=== PATIENT | female | born 1960 | race Caucasian/White ===

== ENCOUNTER → 2017-03-29 | Outpatient (CLI) | payer BC ==
--- NOTE | 2017-03-30 08:52 | MM ---
Reason for exam: screening (asymptomatic). Last mammogram was performed 1 year and 1 month ago. History: Patient is postmenopausal and history of other cancer. Family history of breast cancer in maternal grandmother and breast cancer in paternal aunt. Took hormonal contraceptives for 14 years beginning at age 18. Physical Findings: A clinical breast exam by your physician is recommended on an annual basis and results should be correlated with mammographic findings. MG 3D Screening Mammo W/Cad Bilateral CC and MLO view(s) were taken. Prior study comparison: March 01, 2016, bilateral MG 3d screening mammo w/cad. September 11, 2014, bilateral MG screening mammo w CAD. September 12, 2013, right breast MG work up mamm w CAD RT. There are scattered fibroglandular densities. There is chronic nodularity in the right breats. There is no discrete abnormality. ASSESSMENT: Negative, BI-RAD 1 RECOMMENDATION: Routine screening mammogram of both breasts in 1 year.
== END | disposition home or self-care (01) ==
LOC: RADMAMWWP 09:47
PROVIDERS: ATTEND Family Medicine
DX: Z12.31 Encounter for screening mammogram for malignant neoplasm of breast (principal)
CPT/HCPCS: 77063; 77067

== ENCOUNTER → 2018-04-10 | Outpatient (CLI) | payer BC ==
--- NOTE | 2018-04-10 10:58 | BD ---
EXAMINATION TYPE: Axial Bone Density DATE OF EXAM: 04/10/2018 COMPARISON: 03/01/2016 CLINICAL HISTORY: Postmenopausal female. Osteoporosis screening. Height: 62 IN Weight: 186 LBS RISK FACTORS HISTORY OF: Active: YES Diet low in dairy products/other sources of calcium: YES Postmenopausal woman: AGE 43 Take estrogen and/or progesterone medications: NOT NOW How long: TOOK CONTROL AGE [age] MEDICATIONS: Thyroid Medications: YES Which medication: Synthroid How Lon YEARS + OSTEOPOROSIS MEDS: NOT NOW ACTONEL FOR 5 YEARS Additional Medications: CALCIUM, VIT D, SYNTHROID, BLOOD PRESSURE MEDS, CHOLESTEROL MEDS EXAM MEASUREMENTS: Bone mineral densitometry was performed using the [employer] System. Bone mineral density as measured about the Lumbar spine is: ----- L1-L4(G/cm2): 1.007 T Score Values are as follows: ----- L2: -1.7 ----- L3: -1.3 ----- L4: -0.8 ----- L1-L4: -1.4 Bone mineral density has: Increased 3.3% since study of: 03/01/2016 Bone mineral density about the R hip (g/cm2): 1.051 Bone mineral density about the L hip (g/cm2): 1.015 T Score values are as follows: -----R Neck: 0.1 -----L Neck: -0.2 -----R Total: 0.8 -----L Total: 0.6 Bone mineral density has: Decreased -1.5% since study of: 03/01/2016 IMPRESSION: Osteopenia (T Score between -2.5 and -1) with regards to the lumbar spine. There is slightly increased risk of fracture and the patient may be considered for treatment. Re-Screen 2-5 years. NOTE: T-SCORE=SD OF THE YOUNG ADULT MEAN.
--- NOTE | 2018-04-13 16:47 | MM ---
Reason for exam: screening (asymptomatic). Last mammogram was performed 1 year ago. History: Patient is postmenopausal and history of other cancer. Family history of breast cancer in maternal grandmother and breast cancer in paternal aunt. Took hormonal contraceptives for 14 years beginning at age 18. MG 3D Screening Mammo W/Cad Bilateral CC and MLO view(s) were taken. Prior study comparison: March 29, 2017, bilateral MG 3d screening mammo w/cad. March 01, 2016, bilateral MG 3d screening mammo w/cad. The breast tissue is heterogeneously dense. This may lower the sensitivity of mammography. there is a 1 mm round lobulated margin density in the right slight middle position. This finding is changed when compared to 2016 and earlier. ASSESSMENT: Incomplete: need additional imaging evaluation, BI-RAD 0 RECOMMENDATION: Ultrasound of the right breast.
== END ==
LOC: RADMAMWWP 06:57
PROVIDERS: ATTEND Family Medicine
DX: Z12.31 Encounter for screening mammogram for malignant neoplasm of breast (principal); M85.88 Other specified disorders of bone density and structure, other site; Z78.0 Asymptomatic menopausal state
CPT/HCPCS: 77063; 77067; 77080

== ENCOUNTER → 2018-04-24 | Outpatient (CLI) | payer BC ==
--- NOTE | 2018-04-25 09:16 | USB ---
Reason for exam: additional evaluation requested from abnormal screening. History: Patient is postmenopausal and history of other cancer. Family history of breast cancer in maternal grandmother and breast cancer in paternal aunt. Took hormonal contraceptives for 14 years beginning at age 18. Physical Findings: Nurse did not find any significant physical abnormalities on exam. US Breast Workup Limited RT Right limited breast ultrasound including focal area of concern, retroareolar and axilla demonstrates no cystic or solid lesion seen. These results were verbally communicated with the patient and result sheet given to the patient on 04/24/18. ASSESSMENT: Suspicious, BI-RAD 4 RECOMMENDATION: Stereotactic core biopsy of the right breast. Called Dr. Leisa Morales with mammographic findings and has scheduled an appointment for the patient for 05/24/18 at 3:[address] Morales. Biopsy scheduled for 05/04/18 at 10:20. PRELIMINARY REPORT CALLED AND FAXED TO DR. MORALES ON 04/25/18.
== END | disposition home or self-care (01) ==
LOC: RADUSWWP 10:27
PROVIDERS: ATTEND Family Medicine
DX: R92.8 Other abnormal and inconclusive findings on diagnostic imaging of breast (principal)

== ENCOUNTER → 2018-05-04 | Day surgery (SDC) | payer BC ==
[2018-05-04 09:29] VITALS: RESP 16; TEMP 98.1; BMI 32.9
[2018-05-04 11:46] VITALS: BP 117/79; PULSE 62
--- NOTE | 2018-05-04 14:34 | MM ---
Stereotactic Mammotome core biopsy right breast. HISTORY: Nodule right breast The nodule in question within the right breast were targeted by the undersigned. Procedure was perfo rmed by the undersigned. Informed consent was obtained and all of the patients questions were answere d. The standard sterile technique was utilized and appropriate local anesthesia was obtained with 1% lidocaine and bicarbonate as well as a 1% lidocaine with epinephrine. Mammotome probe was advanced and multiple core samples were obtained and sent to pathology for interpretation. Microclip marker w as deployed at the site of biopsy. Post procedural mammogram demonstrates appropriate deployment of radiopaque clip marker. The patient tolerated the procedure well and left the department in stable c ondition. Pathology results are pending. IMPRESSION: Successful stereotactic core biopsy right breast with pathology results pending.
== END | disposition home or self-care (01) ==
LOC: RADMAMWWP 09:13
PROVIDERS: ATTEND Surgery
DX: N63.0 Unspecified lump in unspecified breast (principal)
CPT/HCPCS: 88305; 19081; A4648; J2001

== ENCOUNTER → 2019-04-19 | Outpatient (CLI) | payer BC ==
--- NOTE | 2019-04-19 11:13 | MM ---
Reason for exam: additional evaluation requested from prior study. Last mammogram was performed 1 year ago. History: Patient is postmenopausal and history of other cancer. Family history of breast cancer in maternal grandmother and breast cancer in paternal aunt. Benign MG stereo VAD BX RT of the right breast, May 04, 2018. Took hormonal contraceptives for 14 years beginning at age 18. Physical Findings: Nurse did not find any significant physical abnormalities on exam. MG 3D Diag Mammo W/Cad SADI Bilateral CC and MLO view(s) were taken. Prior study comparison: April 10, 2018, bilateral MG 3d screening mammo w/cad. March 29, 2017, bilateral MG 3d screening mammo w/cad. There are scattered fibroglandular densities. No significant new findings when compared with previous films. These results were verbally communicated with the patient and result sheet given to the patient on 04/19/19. ASSESSMENT: Benign, BI-RAD 2 RECOMMENDATION: Routine screening mammogram of both breasts in 1 year.
== END | disposition home or self-care (01) ==
LOC: RADMAMWWP 08:11
PROVIDERS: ATTEND Family Medicine
DX: R92.8 Other abnormal and inconclusive findings on diagnostic imaging of breast (principal)
CPT/HCPCS: 77062; 77066

== ENCOUNTER 2020-10-07 11:35 | Emergency (ER) | payer BC ==
[2020-10-07] MEDS ORDERED: MORPHINE SULFATE 4 MG/ML SYRINGE IVP STA (11:53)
[2020-10-07] MEDS ORDERED: SODIUM CHLORIDE 0.9% 1,000 ML IV STA (11:53)
[2020-10-07] MEDS ORDERED: ONDANSETRON 4 MG/2 ML VIAL IVP STA (11:53)
--- NOTE | 2020-10-07 12:06 | ED ---
General Adult HPI - General Chief complaint: Back Pain/Injury Stated complaint: back pain Time Seen by Provider: 10/07/20 11:39 Source: patient, RN notes reviewed Mode of arrival: ambulatory Limitations: no limitations - History of Present Illness Initial comments: 60-year-old female presents to the emergency room for a chief complaint of right low back pain. Patient reports she has a new puppy. She reports that yesterday she bent down to greens picker the puppy. When she stood back up she felt a severe pain in the right low back. Patient states this caused her to vomit all night long. States she could not get comfortable throughout the night. Patient denies any bladder bowel changes, saddle anesthesia, weakness of the legs. Patient does report that movement makes the pain worse such as going from a laying to a sitting position. Walking also makes the pain worse. Patient denies any fevers.Patient has no other complaints at this time including shortness of breath, chest pain, abdominal pain, nausea or vomiting, headache, or visual changes. - Related Data Home Medications Medication Instructions Recorded Confirmed Atorvastatin [Lipitor] 40 mg PO HS 04/25/18 05/04/18 Benazepril/Hydrochlorothiazide 1 each PO DAILY 04/25/18 05/04/18 [Benazepril-Hctz 10-12.5 mg Tab] Levothyroxine Sodium [Synthroid] 75 mcg PO DAILY 04/25/18 05/04/18 Previous Rx's Medication Instructions Recorded Cyclobenzaprine [Flexeril] 10 mg PO TID #14 tab 10/07/20 Ibuprofen [Motrin] 600 mg PO Q8HR PRN #20 tab 10/07/20 Ondansetron [Zofran ODT] 4 mg PO Q8HR PRN #15 tab 10/07/20 Allergies Allergy/AdvReac Type Severity Reaction Status Date / Time No Known Allergies Allergy Verified 10/07/20 11:36 Review of Systems ROS Statement: Those systems with pertinent positive or pertinent negative responses have been documented in the HPI. ROS Other: All systems not noted in ROS Statement are negative. Past Medical History Past Medical History: Hypertension, Thyroid Disorder Additional Past Medical History / Comment(s): hypothyroidism (takes 75mcg of synthroid) History of Any Multi-Drug Resistant Organisms: None Reported Past Surgical History: Appendectomy, Hysterectomy Additional Past Surgical History / Comment(s): ecoptic x1 (1985), Total hysterectomy 2004, breast reduction 2019 Past Anesthesia/Blood Transfusion Reactions: No Reported Reaction Additional Past Anesthesia/Blood Transfusion Reaction / Comment(s): No blood transfusion to date Past Psychological History: No Psychological Hx Reported Smoking Status: Never smoker Past Alcohol Use History: Rare Past Drug Use History: None Reported General Exam Limitations: no limitations General appearance: alert, in no apparent distress Head exam: Present: atraumatic, normocephalic, normal inspection Eye exam: Present: normal appearance, PERRL, EOMI. Absent: scleral icterus, conjunctival injection, periorbital swelling ENT exam: Present: normal exam, mucous membranes moist Neck exam: Present: normal inspection, full ROM. Absent: tenderness, menin gismus, lymphadenopathy Respiratory exam: Present: normal lung sounds bilaterally. Absent: respiratory distress, wheezes, rales, rhonchi, stridor Cardiovascular Exam: Present: regular rate, normal rhythm, normal heart sounds. Absent: systolic murmur, diastolic murmur, rubs, gallop, clicks GI/Abdominal exam: Present: soft, normal bowel sounds. Absent: distended, tenderness, guarding, rebound, rigid Extremities exam: Present: normal capillary refill (Capillary refill less than 2 seconds, DP pulses 2+ in lower extremities bilaterally) Back exam: Present: paraspinal tenderness (Right-sided lumbar paraspinal tenderness near her SI joint.). Absent: CVA tenderness (R), CVA tenderness (L), vertebral tenderness Course Vital Signs 10/07/20 10/07/20 10/07/20 11:36 12:04 13:50 Temperature 98.4 F Pulse Rate 76 75 69 Respiratory 16 18 18 Rate Blood Pressure 148/82 127/77 121/70 O2 Sat by Pulse 97 95 98 Oximetry Medical Decision Making - Medical Decision Making vitals are stable. Patient is well-appearing. Presents for right-sided low back pain. Pain does seem musculoskeletal in nature. Pain is elicited with movement and patient did have an injury. However patient states this pain is severe and has been vomiting all night and therefore workup was initiated to rule out any other emergent pathologies. CBC was obtained which was unrema rkable. CMP shows mild dehydration, patient was given fluids. Urinalysis is unremarkable. CT abdomen and pelvis shows degenerative disc disease with posterior disc bulges noted at L5-S1 as well as L4-L5 and L3-L4. Hiatal hernia noted as well as diverticulosis. Suspect patient's symptoms are likely related to disc bulge. Patient was given pain medication and had significant improvement in pain. She does not have any red flag symptoms, denies bladder or bowel changes, saddle anesthesia, weakness of the legs, or fevers. At this time patient can be discharged home to follow up with orthopedics. We will send her home with pain medication. She will return here for any worsening symptoms that are discussed with her. - Lab Data Result diagrams: 10/07/20 12:21 10/07/20 12:21 Lab Results 10/07/20 10/07/20 10/07/20 Range/Units 12:21 12:21 12:21 WBC 9.2 (3.8-10.6) k/uL RBC 4.94 (3.80-5.40) m/uL Hgb 15.1 (11.4-16.0) gm/dL Hct 43.4 (34.0-46.0) % MCV 87.9 (80.0-100.0) fL MCH 30.5 (25.0-35.0) pg MCHC 34.7 (31.0-37.0) g/dL RDW 12.6 (11.5-15.5) % Plt Count 336 (150-450) k/uL MPV 7.1 Neutrophils % 85 % Lymphocytes % 9 % Monocytes % 4 % Eosinophils % 1 % Basophils % 0 % Neutrophils # 7.8 H (1.3-7.7) k/uL Lymphocytes # 0.8 L (1.0-4.8) k/uL Monocytes # 0.4 (0-1.0) k/uL Eosinophils # 0.1 (0-0.7) k/uL Basophils # 0.0 (0-0.2) k/uL Sodium 139 (137-145) mmol/L Potassium 3.9 (3.5-5.1) mmol/L Chloride 103 (98-107) mmol/L Carbon Dioxide 26 (22-30) mmol/L Anion Gap 10 mmol/L BUN 19 H (7-17) mg/dL Creatinine 0.64 (0.52-1.04) mg/dL Est GFR (CKD-EPI)AfAm >90 (>60 ml/min/1.73 sqM) Est GFR (CKD-EPI)NonAf >90 (>60 ml/min/1.73 sqM) Glucose 143 H (74-99) mg/dL Calcium 9.5 (8.4-10.2) mg/dL Total Bilirubin 0.3 (0.2-1.3) mg/dL AST 24 (14-36) U/L ALT 18 (4-34) U/L Alkaline Phosphatase 103 (38-126) U/L Total Protein 7.1 (6.3-8.2) g/dL Albumin 4.7 (3.5-5.0) g/dL Amylase 47 (30-110) U/L Lipase 99 (23-300) U/L Urine Color Yellow Urine Appearance Clear (Clear) Urine pH 6.0 (5.0-8.0) Ur Specific [place] 1.028 (1.001-1.035) Urine Protein Trace H (Negative) Urine Glucose (UA) Negative (Negative) Urine Ketones Negative (Negative) Urine Blood Negative (Negative) Urine Nitrite Negative (Negative) Urine Bilirubin Negative (Negative) Urine Urobilinogen <2.0 (<2.0) mg/dL Ur Leukocyte Esterase Negative (Negative) Disposition Clinical Impression: Bulging discs, Back pain Disposition: HOME SELF-CARE Condition: Good Instructions (If sedation given, give patient instructions): Acute Low Back Pain (ED) Additional Instructions: Please follow-up with your doctor in orthopedics in one to 2 days. In the meantime take Motrin for pain. If pain is severe take Tylenol [address] or operate machinery while taking this. You may also take muscle relaxer while not driving. If you have any worsening symptoms such as bladder or bowel changes, saddle anesthesia, weakness of the legs, or fevers return immediately t o the emergency room. Prescriptions: Cyclobenzaprine [Flexeril] 10 mg PO TID #14 tab Ibuprofen [Motrin] 600 mg PO Q8HR PRN #20 tab PRN Reason: Pain Ondansetron [Zofran ODT] 4 mg PO Q8HR PRN #15 tab PRN Reason: Nausea Is patient prescribed a controlled substance at d/c from ED?: No Referrals: Leisa Morales MD [Primary Care Provider] - 1-2 days Balta Gallagher MD [STAFF PHYSICIAN] - 1-2 days Time of Disposition: 14:13
[2020-10-07 12:13] VITALS: RESP 18
[2020-10-07 12:37] LABS: Basophils % (A) 0 %; Eosinophils # (A) 0.1 k/uL (0-0.7); Eosinophils % (A) 1 %; HCT 43.4 % (34.0-46.0); HGB 15.1 gm/dL (11.4-16.0); Lymphocytes # (A) 0.8 k/uL (1.0-4.8); Lymphocytes % (A) 9 %; MCH 30.5 pg (25.0-35.0); MCHC 34.7 g/dL (31.0-37.0); MCV 87.9 fL (80.0-100.0); Mean Platelet Volume 7.1; Monocytes # (A) 0.4 k/uL (0-1.0); Monocytes % (A) 4 %; Neutrophils # (A) 7.8 k/uL (1.3-7.7); Neutrophils % (A) 85 %; Platelet Count 336 k/uL (150-450); RBC 4.94 m/uL (3.80-5.40); RDW 12.6 % (11.5-15.5); WBC 9.2 k/uL (3.8-10.6)
[2020-10-07 12:38] LABS: Appearance,Urine Clear (Clear); Bilirubin,Urine Negative (Negative); Blood,Urine Negative (Negative); Color,Urine Yellow; Glucose,Urine (UA) Negative (Negative); Ketones,Urine Negative (Negative); Leukocyte Esterase,Urine Negative (Negative); Nitrite,Urine Negative (Negative); Protein,Urine Trace (Negative); Specific Gravity,Urine 1.028 (1.001-1.035); Urobilinogen,Urine <2.0 mg/dL (<2.0)
[2020-10-07 13:00] LABS: ALT 18 U/L (4-34); AST 24 U/L (14-36); African American GFR (CKD) >90 (>60 ml/min/1.73 sqM); Albumin 4.7 g/dL (3.5-5.0); Alkaline Phosphatase 103 U/L (38-126); Amylase 47 U/L (30-110); Anion Gap 10 mmol/L; Blood Urea Nitrogen 19 mg/dL (7-17); Calcium 9.5 mg/dL (8.4-10.2); Carbon Dioxide 26 mmol/L (22-30); Chloride 103 mmol/L (98-107); Glucose 143 mg/dL (74-99); Lipase 99 U/L (23-300); Non-African American GFR(CKD) >90 (>60 ml/min/1.73 sqM); Potassium 3.9 mmol/L (3.5-5.1); Sodium 139 mmol/L (137-145); Total Bilirubin 0.3 mg/dL (0.2-1.3); Total Protein 7.1 g/dL (6.3-8.2)
--- NOTE | 2020-10-07 13:21 | CT ---
EXAMINATION TYPE: CT abdomen pelvis w con DATE OF EXAM: 10/07/2020 COMPARISON: None HISTORY: patient complains of "low back pain post lifting injury with radiation bilaterally to the le gs" CT DLP: 959.7 mGycm Automated exposure control for dose reduction was used. TECHNIQUE: Helical acquisition of images from the lung bases through the pelvis have been completed. CONTRAST: Performed without Oral Contrast and with IV Contrast, patient injected with 100 mL of Isovue 300. FINDINGS: There is a hiatal hernia. LUNG BASES: No significant abnormality is appreciated. AORTA: No significant abnormality is appreciated. LIVER/GB: No significant abnormality is appreciated. PANCREAS: No significant abnormality is seen. SPLEEN: No significant abnormality is seen. ADRENALS: No significant abnormality is seen. KIDNEYS: Cortical cyst associated with the right kidney, larger measures 3.2 cm REPRODUCTIVE ORGANS: Uterus is not seen ovary is not seen definitively seen BOWEL: Diverticular changes are associated with the sigmoid colon, no evident appendicitis FREE AIR: No Free Air visible. ASCITES: None visible. PELVIC ADENOPATHY: None visualized. RETROPERITONEAL ADENOPATHY: No Retroperitoneal Adenopathy visible. URINARY BLADDER: No significant abnormality is seen. OSSEOUS STRUCTURES: Posterior disc bulges noted at L5-S1, there may be contact of the proximal S1 ne rve roots, posterior broad-based disc bulge also present L4-5 and L3-4, there is associated facet art hropathy. IMPRESSION: DEGENERATIVE DISC DISEASE. DIVERTICULOSIS. HIATAL HERNIA.
[2020-10-07] MEDS ORDERED: KETOROLAC 15 MG/ML 1 ML VIAL IVP STA (14:14)
[2020-10-07] MEDS ORDERED: ACET/COD 300 MG/30 MG STARTER PACK 6 TAB BTL PO STA (14:14)
[2020-10-07 14:25] VITALS: BP 138/75; PULSE 70; TEMP 99.1
== END 2020-10-07 14:32 | disposition home or self-care (01) ==
LOC: EC 11:35
DX: M51.26 Other intervertebral disc displacement, lumbar region (principal); I10 Essential (primary) hypertension; E03.9 Hypothyroidism, unspecified; Z79.1 Long term (current) use of non-steroidal anti-inflammatories (NSAID); Z79.890 Hormone replacement therapy; Z79.899 Other long term (current) drug therapy
CPT/HCPCS: 36415; 80053; 82150; 83690; 85025; 81003; 74177; 96374; 96375 ×2; 96361 ×2; 99284; J2270; J2405; J1885; Q9967

== ENCOUNTER → 2021-06-16 | Outpatient (CLI) | payer BC ==
--- NOTE | 2021-06-16 20:32 | BD ---
EXAMINATION TYPE: Axial Bone Density DATE OF EXAM: 06/16/2021 COMPARISON: Prior DEXA bone scan April 10, 2018 CLINICAL HISTORY: 61 years year old Female. ICD-10 CODE: Z78.0 ASYMPTOMATIC MENOPAUSAL STATE Height: 5 FT 1 1/ 4IN Weight: 164 FRAX RISK QUESTIONS: Alcohol (3 or more units per day): NO Family History (Parent hip fracture): NO Glucocorticoids (More than 3mos): NO (Ex: prednisone, prednisolone, methylprednisolone, dexamethasone, and hydrocortisone). History of Fracture in Adulthood: NO Secondary Osteoporosis: 1. Type 1 Diabetes: NO 2. Hyperthyroidism: NO 3. Menopause before 45: YES 4. Malnutrition: NO 5. Chronic liver disease: NO Rheumatoid Arthritis: NO Current Tobacco Use: NO RISK FACTORS HISTORY OF: Surgery to Spine/Hip(right/left)/Wrist (right/left): NO Family History of Osteoporosis: NO Active: YES Diet low in dairy products/other sources of calcium: NO Postmenopausal woman: YES Take estrogen and/or progesterone medications: NO Lost more than 2 inches in height since high school: NO Frequent falls: NO Poor Health: GOOD Hyperparathyroidism: NO Adrenal Insufficiency: NO MEDICATIONS: Thyroid Medications: YES Which medication: LEVOTHYROXINE How Long: APPROX 8 YEARS Additional Medications: LEVOTHYROXINE, BENZO BENAZEPRIL, [place]VASTATAN Additional History: EXAM MEASUREMENTS: Bone mineral densitometry was performed using the [employer] System. Bone mineral density as measured about the Lumbar spine is: ----- L1-L4(G/cm2): 1.039 T Score Values are as follows: ----- L1: -1.5 ----- L2: -1.7 ----- L3: -1.1 ----- L4: -0.7 ----- L1-L4: -1.2 Bone mineral density has: INCREASED 1.0 % since study of: 2018 Bone mineral density about the R hip (g/cm2): 1.049 Bone mineral density about the L hip (g/cm2): 0.995 T Score values are as follows: -----R Neck: 0.1 -----L Neck: -0.3 -----R Total: 0.5 -----L Total: 0.2 Bone mineral density has: DECREASED -3.9 % since study of: 2019 FRAX%s: The graph provided illustrates a 6.6 % chance for a major osteoporotic fx and a 0.2 % chance for the hips probability for fx in 10 years time. IMPRESSION: Osteopenia (T Score between -2.5 and -1). There is slightly increased risk of fracture and the patient may be considered for treatment. Re-Screen 2-5 years. NOTE: T-SCORE=SD OF THE YOUNG ADULT MEAN.
--- NOTE | 2021-06-18 14:54 | MM ---
Reason for exam: screening (asymptomatic). Last mammogram was performed 2 years and 2 months ago. History: Patient is postmenopausal and history of other cancer. Family history of breast cancer in maternal grandmother and breast cancer in paternal aunt. Reductions of both breasts, 2019. Benign MG stereo VAD BX RT of the right breast, May 04, 2018. Took hormonal contraceptives for 14 years beginning at age 18. Physical Findings: A clinical breast exam by your physician is recommended on an annual basis and results should be correlated with mammographic findings. MG 3D Screening Mammo W/Cad Bilateral CC and MLO view(s) were taken. Prior study comparison: April 19, 2019, bilateral MG 3d diag mammo w/cad [facility]. April 10, 2018, bilateral MG 3d screening mammo w/cad. There are scattered fibroglandular densities. Breast size decreased bilaterally. No significant changes when compared with prior studies. ASSESSMENT: Benign, BI-RAD 2 RECOMMENDATION: Routine screening mammogram of both breasts in 1 year.
== END | disposition home or self-care (01) ==
LOC: RADMAMWWP 14:35
PROVIDERS: ATTEND Family Medicine
DX: Z12.31 Encounter for screening mammogram for malignant neoplasm of breast (principal); M85.89 Other specified disorders of bone density and structure, multiple sites; Z78.0 Asymptomatic menopausal state
CPT/HCPCS: 77063; 77067; 77080

== ENCOUNTER → 2022-06-17 | Outpatient (CLI) | payer BC ==
--- NOTE | 2022-06-17 19:28 | MM ---
Reason for Exam: Screening (asymptomatic). Last screening mammogram was performed 12 month(s) ago. Patient History: Menarche at age 10. First Full-Term at age 23. Left ovary removed at age 43. Right ovary removed at age 43. Hysterectomy at age 43. Postmenopausal. Patient has history of breast feeding. Other cancer. Hormonal Contraceptives for 14 years from age 18 until age 43. 2020, Bilateral Reduction. 05/04/2018, Benign Core Biopsy on the right side. Maternal grandmother had breast cancer. Paternal aunt had breast cancer. Risk Values: Ellie 5 year model risk: 2.1%. NCI Lifetime model risk: 8.4%. Prior Study Comparison: 04/10/2018 Bilateral Screening Mammogram, [facility]. 04/19/2019 Bilateral Diagnostic Mammogram, [facility]. 06/16/2021 Bilateral Screening Mammogram, [facility]. Tissue Density: There are scattered fibroglandular densities. Findings: Analyzed By CAD. There is no suspicious group of microcalcifications or new suspicious mass in either breast. Overall Assessment: Negative, BI-RAD 1 Management: Screening Mammogram of both breasts in 1 year. 1. Patient should continue monthly self breast exams. 2. A clinical breast exam by your physician is recommended on an annual basis. 3. This exam should not preclude additional follow-up of suspicious palpable abnormalities. Electronically signed and approved by: Tyler Marroquin M.D. Radiologist
== END | disposition home or self-care (01) ==
LOC: RADMAMWWP 07:03
PROVIDERS: ATTEND Family Medicine
DX: Z12.31 Encounter for screening mammogram for malignant neoplasm of breast (principal); Z78.0 Asymptomatic menopausal state; Z80.3 Family history of malignant neoplasm of breast
CPT/HCPCS: 77063; 77067

== ENCOUNTER → 2023-10-19 | Outpatient (CLI) | payer MEDICARE ==
--- NOTE | 2023-10-19 10:34 | BD ---
EXAMINATION TYPE: Axial Bone Density DATE OF EXAM: 10/19/2023 CLINICAL HISTORY: 63 years old Female. ICD-10 CODE: M85.9 DISORDER OF BONE DENSITY Height: 61.4 Weight: 165 FRAX RISK QUESTIONS: Family History (Parent hip fracture): yes, mother Secondary Osteoporosis: yes 3. Menopause before 45: yes RISK FACTORS HISTORY OF: height loss, MEDICATIONS: statin for cholesterol, vit d, bp meds, Thyroid Medications: yes, synthroid product, for 10 yrs, EXAM MEASUREMENTS: Bone mineral densitometry was performed using the [employer] System. Bone mineral density as measured about the Lumbar spine is: ----- L1-L4(G/cm2): 1.051 T Score Values are as follows: ----- L1: -2.3 ----- L2: -1.3 ----- L3: -1.2 ----- L4: 0.1 ----- L1-L4: -1.1 Z Score Values are as follows: ----- L1: -1.0 ----- L2: 0.0 ----- L3: 0.1 ----- L4: 1.4 ----- L1-L4: 0.2 Bone mineral density has: Increased 1.2% since study of: 06.16.2021 Bone mineral density about the R hip (g/cm2): 1.095 Bone mineral density about the L hip (g/cm2): 1.031 T Score values are as follows: -----R Neck: 0.2 -----L Neck: -0.5 -----R Total: 0.7 -----L Total: 0.2 Z Score values are as follows: -----R Neck: 1.5 -----L Neck: 0.7 -----R Total: 1.7 -----L Total: 1.2 Bone mineral density has: Increased 0.8% since study of: 06.16.2021 FRAX%s: The graph provided illustrates a 13.9% chance for a major osteoporotic fx and a 0.4% chance f or the hips probability for fx in 10 years time. IMPRESSION: Osteopenia (T Score between -2.5 and -1). There is slightly increased risk of fracture and the patient may be considered for treatment. Re-Screen 2-5 years. NOTE: T-SCORE=SD OF THE YOUNG ADULT MEAN.
--- NOTE | 2023-10-20 08:49 | MM ---
Reason for Exam: Screening (asymptomatic). Last mammogram was performed 1 year(s) and 4 month(s) ago. Patient History: Menarche at age 10. First Full-Term at age 23. Left ovary removed at age 43. Right ovary removed at age 43. Hysterectomy at age 43. Postmenopausal. Patient has history of breast feeding. Hormonal Contraceptives for 14 years from age 18 until age 43. 2020, Bilateral Reduction. 05/04/2018, Benign Core Biopsy on the right side. Maternal grandmother had breast cancer. Paternal aunt had breast cancer. Risk Values: Ellie 5 year model risk: 2.2%. NCI Lifetime model risk: 8.2%. Prior Study Comparison: 04/19/2019 Bilateral Diagnostic Mammogram, [facility]. 06/16/2021 Bilateral Screening Mammogram, [facility]. 06/17/2022 Bilateral MG 3D screening mammo w/cad, [facility]. Tissue Density: There are scattered areas of fibroglandular density. Findings: Analyzed By CAD. There is no suspicious group of microcalcifications or new suspicious mass in either breast. Overall Assessment: Benign, BI-RAD 2 Management: Screening Mammogram of both breasts in 1 year. . Patient should continue monthly self-breast exams. A clinical breast exam by your physician is recommended on an annual basis. This exam should not preclude additional follow-up of suspicious palpable abnormalities. Note on Ellie scores and lifetime risk: 1. A Ellie score greater than 3% is considered moderate risk. If this is the case, consider specialist referral to assess eligibility for a risk reducing agent. 2. If overall lifetime risk for the development of breast cancer is 20% or higher, the patient may qualify for future screening with alternating mammogram and breast MRI. Electronically signed and approved by: Ion Dawn M.D. Radiologis
== END | disposition home or self-care (01) ==
LOC: RADMAMWWP 08:15
PROVIDERS: ATTEND Family Medicine
DX: Z12.31 Encounter for screening mammogram for malignant neoplasm of breast (principal); M85.89 Other specified disorders of bone density and structure, multiple sites; R92.323 Mammographic fibroglandular density, bilateral breasts; Z78.0 Asymptomatic menopausal state; Z80.3 Family history of malignant neoplasm of breast
CPT/HCPCS: 77063; 77067; 77080

== ENCOUNTER → 2024-10-24 | Outpatient (CLI) | payer MEDICARE ==
--- NOTE | 2024-10-24 13:17 | MM ---
Reason for Exam: Screening (asymptomatic). Last screening mammogram was performed 12 month(s) ago. Patient History: Menarche at age 10. First Full-Term at age 23. Left ovary removed at age 43. Right ovary removed at age 43. Hysterectomy at age 43. Postmenopausal. Patient has history of breast feeding. Hormonal Contraceptives for 14 years from age 18 until age 43. 2020, Bilateral Reduction. 05/04/2018, Benign Core Biopsy on the right side. Maternal grandmother had breast cancer. Paternal aunt had breast cancer. Risk Values: Ellie 5 year model risk: 2.2%. NCI Lifetime model risk: 7.9%. Prior Study Comparison: 06/16/2021 Bilateral Screening Mammogram, [facility]. 06/17/2022 Bilateral MG 3D screening mammo w/cad, [facility]. 10/19/2023 Bilateral MG 3D screening mammo w/cad, [facility]. Tissue Density: There are scattered areas of fibroglandular density. Findings: Analyzed By CAD. There is no suspicious group of microcalcifications or new suspicious mass in either breast. Overall Assessment: Negative, BI-RAD 1 Management: Screening Mammogram of both breasts in 1 year. Patient should continue monthly self-breast exams. A clinical breast exam by your physician is recommended on an annual basis. This exam should not preclude additional follow-up of suspicious palpable abnormalities. Note on Ellie scores and lifetime risk: 1. A Ellie score greater than 3% is considered moderate risk. If this is the case, consider specialist referral to assess eligibility for a risk reducing agent. 2. If overall lifetime risk for the development of breast cancer is 20% or higher, the patient may qualify for future screening with alternating mammogram and breast MRI. [facility], , 10/24/2024 1:09 PM. Electronically signed and approved by: Tyler Marroquin M.D. Radiologist
== END | disposition home or self-care (01) ==
LOC: RADMAMWWP 07:16
PROVIDERS: ATTEND Family Medicine
DX: Z12.31 Encounter for screening mammogram for malignant neoplasm of breast (principal); R92.323 Mammographic fibroglandular density, bilateral breasts; Z78.0 Asymptomatic menopausal state; Z80.3 Family history of malignant neoplasm of breast; Z92.0 Personal history of contraception
CPT/HCPCS: 77063; 77067